=== PATIENT | male | born 1950 | race Caucasian/White ===

== ENCOUNTER 2016-10-17 19:28 | Emergency (ER) | payer MEDICARE ==
[2016-10-17 19:50] LABS: RED BLOOD COUNT 4.48 M/UL (4.20-5.50); WHITE BLOOD COUNT 8.3 K/UL (4.5-11.0)
[2016-10-17 20:10] LABS: BUN/CREATININE RATIO 14 (0-10)
== END 2016-10-17 23:12 | disposition home or self-care (01) ==
LOC: ER1 19:28
PROVIDERS: Student in an Organized Health Care Education/Training Program
DX: T63.461A Toxic effect of venom of wasps, accidental (unintentional), initial encounter (principal); R41.0 Disorientation, unspecified; N39.0 Urinary tract infection, site not specified; I10 Essential (primary) hypertension; Z87.891 Personal history of nicotine dependence; Z79.899 Other long term (current) drug therapy
CPT/HCPCS: 36415; 70450; 71010; 80053; 80307; 81001; 82550; 82553; 83874; 84484; 85025; 85610; 85730; 87077; 87086; 87186; 93005; 96360; 96361; 99285; G0480; J7030

== ENCOUNTER 2020-09-10 08:19 | Emergency (ER) | payer OTHER ==
[2020-09-10 10:16] LABS: HEMOGLOBIN 18.5 gm/dl (14.0-17.5); RED BLOOD COUNT 5.66 M/UL (4.20-5.50); WHITE BLOOD COUNT 11.8 K/UL (4.5-11.0)
[2020-09-10 10:47] LABS: BUN/CREATININE RATIO 14 (0-10)
[2020-09-10] MEDS ORDERED: NASONEX17 GM (13:44)
[2020-09-10] MEDS ORDERED: AUGMENTIN 875-1 EACH PO (13:44)
[2020-09-10] MEDS ORDERED: GABAPENTIN100 MG PO (13:44)
[2020-09-10] MEDS ORDERED: VALTREX1000 MG PO (13:44)
[2020-09-10] MEDS ORDERED: IBUPROFEN800 MG PO (13:44)
== END 2020-09-10 14:05 | disposition home or self-care (01) ==
LOC: ER1 08:19
PROVIDERS: Emergency Medicine
DX: G50.0 Trigeminal neuralgia (principal); I10 Essential (primary) hypertension
CPT/HCPCS: 70450; 70486; 80053; 85025; 96374; 96375; 99284; J2270; J2405

== ENCOUNTER → 2020-09-25 | Outpatient (CLI) | payer OTHER ==
[~2020-09-25] MED LIST: AUGMENTIN 875-1 EACH PO; GABAPENTIN100 MG PO; IBUPROFEN800 MG PO; NASONEX17 GM; VALTREX1000 MG PO
== END ==
LOC: MRI 12:17
DX: G50.0 Trigeminal neuralgia (principal); J32.0 Chronic maxillary sinusitis
CPT/HCPCS: 36415; 70553; 82565; A9577